=== PATIENT | male | born 1985 | race Asian ===

== ENCOUNTER 2021-06-29 11:14 | Emergency (ER) | payer MEDICAID ==
[~2021-06-29] VITALS: Ht 165.1 cm; Wt 70.5 kg
[2021-06-29] MEDS ORDERED: POVIDONE-IODINE 10% 15 ML SOLUTION UD TP ONE (12:30)
[2021-06-29] MEDS ORDERED: BACITRACIN 0.9 GM PACKET OINTMENT TP ONE (12:30)
[2021-06-29] MEDS: ACETAMINOPHEN 500 MG TABLET PO ONE ×2 (12:44→12:50)
[2021-06-29] MEDS ORDERED: LIDOCAINE 1% 10 ML VIAL SQ ONE (12:45)
[2021-06-29 13:34] VITALS: BP 138/85
== END 2021-06-29 13:45 | disposition home or self-care (01) ==
LOC: EMS 11:14
DX: S61.412A Laceration without foreign body of left hand, initial encounter (principal); F17.200 Nicotine dependence, unspecified, uncomplicated; Z88.8 Allergy status to other drugs, medicaments and biological substances; W45.8XXA Other foreign body or object entering through skin, initial encounter; Y93.89 Activity, other specified; Y92.89 Other specified places as the place of occurrence of the external cause; Y99.8 Other external cause status
CPT/HCPCS: 12002; 99282; J3490